=== PATIENT | female | born 1995 | race Caucasian/White ===

== ENCOUNTER 2023-06-23 21:32 | Emergency (ER) | payer BC ==
[~2023-06-23] VITALS: Ht 162.6 cm; Wt 100.0 kg
[~2023-06-23 21:32] MED LIST: CEFTIN 250250 MG/TAB PO; NORCO 325 MG-51 TAB PO; ZOFRAN ODT4 MG PO
[2023-06-23 21:48] VITALS: TEMP 98.3
[2023-06-23] MEDS ORDERED: Ondansetron 4 MG/2 ML VIAL IV ONE (22:45)
[2023-06-23] MEDS ORDERED: NS 1,000 ML IV ONE (22:45)
[2023-06-23 23:07] LABS: BASO # 0.1 K/mm3 (0.0-0.2); BASO % 0.4 % (0.0-2.0); EOS # 0.1 K/mm3 (0.0-0.7); EOS % 0.8 % (0.0-4.0); GRAN # 9.1 K/mm3 (1.4-6.5); HEMATOCRIT 40.9 % (37.0-47.0); HEMOGLOBIN 13.8 g/dl (12.5-16.0); LYMPH % 16.5 % (20.0-51.0); MEAN CELL VOLUME 84 fl (80.0-100.0); MEAN CORPUSCULAR HEMOGLOBIN 28 pg (27-31); MEAN CORPUSCULAR HGB CONC 34 g/dl (33.0-37.0); MEAN PLATELET VOLUME 9.8 fl (7.4-10.4); MONO # 0.6 K/mm3 (0.1-0.6); PLATELET COUNT 385 K/mm3 (130-400); RED BLOOD COUNT 4.87 M/mm3 (4.10-5.30)
[2023-06-23 23:14] LABS: PH 5.5 (5.0-8.5); URINE APPEARANCE CLEAR (CLEAR/HAZY); URINE BLOOD NEGATIVE (NEGATIVE); URINE COLOR YELLOW (YELLOW); URINE GLUCOSE NEGATIVE (NEGATIVE); URINE KETONE TRACE (NEGATIVE); URINE NITRATE NEGATIVE (NEGATIVE); URINE PROTEIN(semi-quant) TRACE (NEGATIVE); URINE UROBILINOGEN 0.2 E.U/dL (0.2-1.0)
[2023-06-23 23:23] LABS: COLLECTION METHOD CLEAN CATCH
[2023-06-23 23:28] LABS: ALBUMIN 3.7 gm/dL (3.5-5.0); BILIRUBIN,TOTAL 0.5 mg/dL (0.2-1.2); CALCIUM 9.5 mg/dL (8.4-10.2); CREATININE, serum 0.72 mg/dL (0.57-1.11); POTASSIUM 3.7 mmol/L (3.5-4.5); TOTAL PROTEIN 7.9 gm/dL (6.2-8.1)
[2023-06-24 00:50] VITALS: BP 154/105; PULSE 84
== END 2023-06-24 01:21 | disposition home or self-care (01) ==
LOC: COL.ER 21:32
PROVIDERS: Nurse Practitioner Primary Care
DX: B34.9 Viral infection, unspecified (principal); R11.2 Nausea with vomiting, unspecified; J02.9 Acute pharyngitis, unspecified
CPT/HCPCS: J2405; J7030

== ENCOUNTER 2024-01-13 20:19 | Emergency (ER) | payer BC ==
[~2024-01-13] VITALS: Ht 162.6 cm; Wt 104.5 kg
[2024-01-13 20:38] VITALS: TEMP 98.4
[2024-01-13] MEDS ORDERED: DOXYCYCLINE 10100 MG PO (21:53)
[2024-01-13] MEDS ORDERED: Doxycycline Monohydrate 100 MG CAP PO ONE (22:00)
[2024-01-13 22:55] VITALS: BP 131/103; PULSE 99
== END 2024-01-13 23:00 | disposition home or self-care (01) ==
LOC: COL.ER 20:19
DX: L02.415 Cutaneous abscess of right lower limb (principal); Z88.0 Allergy status to penicillin